=== PATIENT | female | born 1970 | race Hispanic/Latino ===

== ENCOUNTER 2024-11-08 14:04 | Emergency (ER) | payer OTHER ==
[~2024-11-08] VITALS: Ht 157.5 cm; Wt 80.0 kg
[2024-11-08] MEDS ORDERED: ACETAMINOPHEN 500 MG TAB PO ONE (14:45)
[2024-11-08] MEDS ORDERED: KETOROLAC TROMETHAMINE 60 MG/2 ML VIAL IM ONE (14:45)
[2024-11-08] MEDS ORDERED: METHOCARBAMOL500 MG PO (15:04)
[2024-11-08 16:48] VITALS: BP 134/70
== END 2024-11-08 16:50 | disposition home or self-care (01) ==
LOC: ED 14:04
DX: M54.50 Low back pain, unspecified (principal)
CPT/HCPCS: 96372; 99283; A9270; J1885